=== PATIENT | male | born 1990 | race African-American/Black ===

== ENCOUNTER 2019-05-06 23:15 | Emergency (ER) | payer MEDICAID ==
[~2019-05-06] VITALS: Ht 170.2 cm; Wt 102.0 kg
[2019-05-07] MEDS ORDERED: KETOROLAC 30MG/ML VIAL IM ONE (00:15)
[2019-05-07 01:45] VITALS: BP 169/98
== END 2019-05-07 01:48 | disposition home or self-care (01) ==
LOC: ER 23:15
DX: S39.012A Strain of muscle, fascia and tendon of lower back, initial encounter (principal); I10 Essential (primary) hypertension; X50.1XXA Overexertion from prolonged static or awkward postures, initial encounter; Y93.89 Activity, other specified; Y92.013 Bedroom of single-family (private) house as the place of occurrence of the external cause
CPT/HCPCS: 72100; 96372; 99283; J1885; Z7610

== ENCOUNTER 2023-07-25 03:23 | Emergency (ER) | payer MEDICAID ==
[~2023-07-25] VITALS: Ht 170.2 cm; Wt 113.0 kg
[2023-07-25 03:55] VITALS: BP 149/107; PULSE 115; RESP 18; TEMP 98.4; O2SAT 99
[2023-07-25] MEDS ORDERED: PREDNISONE 20MG TABLET PO STA (05:53)
[2023-07-25] MEDS ORDERED: IPRATROPIUM BROMIDE (0.02%) 0.5MG/2.5ML NEB HHN STA (05:53)
[2023-07-25] MEDS ORDERED: ALBUTEROL (0.083%) 2.5MG/3ML NEB HHN STA (05:53)
== END 2023-07-25 09:00 | disposition left against medical advice (07) ==
LOC: ER 03:31
DX: R06.02 Shortness of breath (principal); J45.909 Unspecified asthma, uncomplicated; I10 Essential (primary) hypertension; Z88.0 Allergy status to penicillin
CPT/HCPCS: 99283; 93005; J7512